=== PATIENT | female | born 1955 | race Caucasian/White ===

== ENCOUNTER 2020-12-30 14:57 | Emergency (ER) | payer BC, OTHER ==
[~2020-12-30] VITALS: Ht 170.2 cm; Wt 78.0 kg
[2020-12-30 18:17] LABS: ABSOLUTE NEUTROPHILS 6.2 thou/uL (1.4-8.2); BASOPHILS 0.9 % (0.0-2.0); EOSINOPHILS 0.6 % (0.0-3.0); HEMATOCRIT 43.2 % (37.0-47.0); HEMOGLOBIN 14.1 gm/dL (12.0-15.0); LYMPHOCYTES 27.6 % (24.0-44.0); MCH 29.2 pg (26.0-34.0); MCHC 32.7 g/dL (28.0-37.0); MCV 89.3 fL (80.0-100.0); MONOCYTES 12.3 % (1.0-8.0); PLATELET COUNT 376 thou/uL (150-400); POLYS 58.6 % (36.0-66.0); RBC 4.84 mil/uL (4.20-5.00); RDW 14.3 % (10.5-14.5); WBC 10.6 thou/uL (4.0-11.0)
[2020-12-30 18:31] LABS: ANION GAP 9 mmol/L (7-16); BUN 14 mg/dL (7-18); CALCIUM 9.2 mg/dL (8.5-10.1); CHLORIDE 104 mmol/L (98-107); CO2 25 mmol/L (21-32); CREATININE 0.6 mg/dL (0.6-1.0); GLUCOSE 88 mg/dL (74-106); POTASSIUM 3.9 mmol/L (3.5-5.1); SODIUM 138 mmol/L (136-145)
[2020-12-30 18:42] LABS: ALBUMIN 3.9 g/dL (3.4-5.0); SGOT 21 U/L (15-37); SGPT 21 U/L (30-65); TOTAL BILIRUBIN 0.5 mg/dL (0.2-1.0); TOTAL PROTEIN 7.4 g/dL (6.4-8.2); TROPONIN-I <0.06 ng/mL (<0.06)
[2020-12-30 19:31] LABS: URINE BILIRUBIN NEGATIVE (Negative); URINE BLOOD TRACE (Negative); URINE CLARITY CLEAR; URINE COLOR YELLOW; URINE GLUCOSE-RANDOM* NEGATIVE (Negative); URINE KETONES 1+ (Negative); URINE LEUKOCYTES-REFLEX TRACE (Negative); URINE NITRITE-REFLEX NEGATIVE (Negative); URINE PROTEIN (DIPSTICK) NEGATIVE (Negative); URINE SPECIFIC GRAVITY 1.025 (1.005-1.035); URINE UROBILINOGEN 0.2 E.U./dl (0.2-1.0)
[2020-12-30] MEDS ORDERED: ATIVAN0.5 M1 PO (21:19)
[2020-12-30 21:27] VITALS: BP 142/60
--- NOTE | 2020-12-31 07:02 | EKG ---
[place] [address] [facility] [place] [address] ELECTROCARDIOGRAM REPORT Name: RONAL TAYLOR Room #: [facility]#: [id number] Admission: 12/30/20 Attend Phys: Discharge: 12/30/20 Date of : 57 Report #: [id number] [facility] ED Test Date: 2020-12-30 Test Time: 15:16:14 Pat Name: RONAL TAYLOR Department: Room: Gender: F Aircraft [employer]: DONI : 1955 Requested By: Geoffrey Tee Order Number: [id number] MD: Marbin Rojas Measurements Intervals [place] Rate: 114 P: 78 [place]: 173 QRS: -50 QRSD: 84 T: 60 QT: 320 QTc: 441 Interpretive Statements Sinus tachycardia Biatrial enlargement RSR' in V1 or V2, probably normal variant Inferior infarct, old No previous ECG available for comparison Electronically Signed On 12-31-2020 7:02:43 CDT by Marbin Rojas [email or web address] <ELECTRONICALLY SIGNED> By: Marbin Rojas MD, [facility] 12/31/20 07 1516 15 Marbin Rojas MD, FACC /EPI
== END 2020-12-30 21:27 | disposition home or self-care (01) ==
LOC: ER 14:57
PROVIDERS: Nurse Practitioner
DX: R42 Dizziness and giddiness (principal); I10 Essential (primary) hypertension; E78.5 Hyperlipidemia, unspecified; Z86.73 Personal history of transient ischemic attack (TIA), and cerebral infarction without residual deficits